=== PATIENT | male | born 1975 ===

== ENCOUNTER 2018-05-06 06:19 | Day surgery (SDC) | payer BC ==
[2018-04-10 09:42] VITALS: BMI 30.2
[2018-05-06] MEDS ORDERED: Propofol 10 mg/ml Inj (20 ML) ONE (07:19)
[2018-05-06] MEDS ORDERED: Lidocaine 2% MPF (5 ml) Inj ONE (07:45)
[2018-05-06] MEDS: Hyaluronidase Human, Recombi 150 U/ML VIAL ONE ×2 (08:13→09:15)
[2018-05-06] MEDS: Povidone Iodine Ophthalmic 5% Soln ONE ×2 (08:14→09:16)
[2018-05-06] MEDS: Tetracaine 0.5% Ophth (OR ONLY) ONE ×2 (08:14→09:16)
[2018-05-06] MEDS: Lidocaine 2% Jelly (Uro-Jet) ONE ×2 (08:14→09:15)
[2018-05-06] MEDS: Tobramycin/Dexamethasone OPHT OINT ONE ×2 (08:14→09:31)
[2018-05-06] MEDS ORDERED: HYDROmorphone 0.5 mg/0.5 ml ISec IVP PRN (08:20)
[2018-05-06] MEDS ORDERED: Lidocaine/Epinephrine 1% 1:100000 10 ML IJ ONE (08:56)
[2018-05-06 11:53] VITALS: BP 142/89; PULSE 57; RESP 16; TEMP 97.8; O2SAT 97
--- NOTE | 2018-05-07 09:26 | OP ---
DATE OF PROCEDURE: 05/06/2018 PREOPERATIVE DIAGNOSES: 1. RECURRENT PTERYGIUM, LEFT EYE. 2. CORNEAL OPACIFICATION, LEFT EYE. POSTOPERATIVE DIAGNOSES: 1. RECURRENT PTERYGIUM, LEFT EYE. 2. CORNEAL OPACIFICATION, LEFT EYE. OPERATIVE PROCEDURE: EXCISION OF PTERYGIUM WITH CONJUNCTIVAL AUTOGRAFT AND LAMELLAR KERATECTOMY, LEFT EYE. ANESTHESIA TYPE: Local standby. COMPLICATIONS: None. PROCEDURE: The patient was brought to the operating room and was prepped and draped in the usual sterile fashion. A lid speculum was placed into the eye and topical Tetracaine was used. One percent lidocaine with epinephrine was injected subconjunctivally into the body of the pterygium. A Kerwin scissor was used to create a small opening at the neck of the pterygium at the limbus, and then a tunnel was created beneath the pterygium. A #4-0 silk suture was placed through this tunnel and tied securely. An additional #4-0 silk suture was placed through the tunnel and in a sling fashion, was used to excise the head of the pterygium from the corneal surface. Scarring from previous surgery was lysed until the conjunctiva was fully mobile. A Kerwin scissor was then used to excise the scleral extension of the pterygium for approximately 3-4 millimeters. Tenon's membrane was removed beneath the dissected bed and light cautery was used for hemostasis. A #57 Thornton blade was then used to perform a lamellar keratectomy removing all of the opacified corneal tissue. A tasia lucas was used to nepalese this surface. One percent lidocaine was used subconjunctivally in the superior aspect of the eye, and a conjunctival autograft was harvested and rotated in an anatomical fashion over the recipient bed. The graft was noted to be of excellent size for the bed, and #8-0 Vicryl sutures were used in an interrupted fashion to suture the graft in place. At the limbus both above and below, the graft was tacked down to episclera. At the end of the case a collagen shield soaked in TobraDex was placed onto the cornea, and TobraDex ointment was placed into the eye. A patch and shield were placed over the eye, and the patient was taken from the operating room in excellent condition. Austin Barney MD
== END 2018-05-06 10:11 | disposition home or self-care (01) ==
LOC: C.SDS 06:19
PROVIDERS: ATTEND Ophthalmology
DX: H11.062 Recurrent pterygium of left eye (principal); H17.9 Unspecified corneal scar and opacity
CPT/HCPCS: 65426; J3470